=== PATIENT | male | born 2005 | race Caucasian/White ===

== ENCOUNTER 2023-02-04 22:50 | Observation (INO) | payer BC, SELFPAY ==
[2023-02-04 23:22] VITALS: BP 152/72; PULSE 113; RESP 16; TEMP 37.5; O2SAT 98; BMI 25.0
[2023-02-04 23:50] LABS: Add Manual Diff / Slide Review NO; Basophils Absolute Auto 0 /uL (0-100); Basophils Percent Auto 0.2 % (0-2); Eosinophils Absolute Auto 200 /uL (0-450); Eosinophils Percent Auto 2.4 % (2-4); Hematocrit 41.5 % (41-53); Hemoglobin 14.3 g/dL (13.5-17.5); Lymphocytes Absolute Auto 2300 /uL (1100-4500); Lymphocytes Percent Auto 25.1 % (25-40); Mean Corpuscular HGB Conc 34.4 % (30-36); Mean Corpuscular Hemoglobin 30.3 PG (26-34); Monocytes Absolute Auto 500 /uL (0-900); Monocytes Percent Auto 5.7 % (3-14); Neutrophils Absolute Auto 6200 /uL (1500-7000); Neutrophils Percent Auto 66.6 % (50-75); Platelet Count 188 X10^3/uL (150-400); Red Blood Cell Count 4.72 X10^6/uL (4.5-5.9); Red Cell Distribution Width 12.6 % (11.6-14.8); White Blood Cell Count 9.3 X10^3/uL (4.5-11.0)
[2023-02-04 23:57] LABS: Alanine Aminotransferase 19 IU/L (<50); Albumin 4.8 g/dL (3.5-5.0); Albumin Globulin Ratio 1.5 (1.0-2.8); Alkaline Phosphatase 57 U/L (38-126); Aspartate Aminotransferase 28 IU/L (17-59); BUN Creatinine Ratio 18.1 (6-22); Bilirubin Total 0.7 mg/dL (0.2-1.3); Blood Urea Nitrogen 13 mg/dL (9-20); Calcium 9.6 mg/dL (8.4-10.2); Carbon Dioxide 27 mmol/L (22-32); Chloride 103 mmol/L (98-107); Estimated Glomerular Filt Rate > 60 mL/min (>60); Globulin 3.3 g/dL (1.7-4.1); Glucose 103 mg/dL (70-100); HEMOLYSIS < 15 (0-50); Lipase 62 U/L (23-300); Potassium 3.8 mmol/L (3.4-5.1); Sodium 140 mmol/L (137-145); Total Protein 8.1 g/dL (6.3-8.2)
[2023-02-05] VITALS (21 sets, daily range): BP systolic 91–136; BP diastolic 49–78; PULSE 69–109; RESP 12–17; TEMP 36.4–36.9; O2SAT 97–99; BMI 25.0
--- NOTE | 2023-02-05 | PATH_ITS ---
[facility] Accession Number: [id number] No. of containers..01 Tissue . 01 Material submitted: . appendix - APPENDIX . 01 Diagnosis: Appendix, Appendectomy: Acute appendicitis with serositis. No evidence of neoplasm. MRV 02/08/2023 1316 Local . 01 Electronically signed: . Cipriano Marie MD, PhD, Pathologist NPI- [id number] . 01 Gross description: . The specimen is received in formalin labeled with the patient's name, , and appendix consists of a lord vermiform appendix measuring 5.3 cm in length by 0.7 cm in diameter with lord smooth serosa and grossly visible vasculature. The mesoappendix extends out to 3.0 cm. The margin is inked blue. Sectioning reveals the lumen to average 0.1 cm in diameter with no fecalith identified. The mendes average 0.4 cm thick with no perforation or lesion identified. Sales Coordinator sections to include the margin, one-half of the bisected distal tip, and cross sections are submitted in cassette A1. ([id number]) /MRV 02/06/2023 1323 Local . 01 Pathologist provided ICD-10: K35.80 . 01 CPT . 176099 Specimen Comment: A courtesy copy of this report has been sent to [phone] Performed at: 01 [facility] [address] [place] [address] [id number] MD Ed Hu MD Phone: [phone]
--- NOTE | 2023-02-05 01:14 | DI.CT.S_ITS ---
PROCEDURE: CT ABDOMEN PELVIS W CON INDICATIONS: poss appy TECHNIQUE: After the administration of IV contrast, axial sections were acquired from the lung bases to the pubic symphysis. Coronal and sagittal reformats were performed. For radiation dose reduction, the following was used: automated exposure control, adjustment of mA and/or kV according to patient size. COMPARISON: None. FINDINGS: Image quality: Excellent. Lung bases: There is a 0.3 cm subpleural nodule in the right middle lobe on series 3, image 2. Heart: Heart is normal in size. ABDOMEN: Liver: No mass lesion. Gallbladder: Within normal limits without calcified gallstones. Biliary ducts: No biliary ductal dilatation. Pancreas: Unremarkable. Spleen: Normal in size. Adrenal Glands: No adrenal nodules. Kidneys and Ureters: No hydronephrosis. Stomach and Bowel: Stomach, small bowel loops, and colon are normal in caliber and wall thickness. The appendix is at the upper limits of normal in caliber, measuring up to 0.7 cm. No periappendiceal fat stranding or fluid. There is colonic diverticulosis without acute diverticulitis. Peritoneum: No abnormal intraperitoneal fluid. No free air. Ventral Wall: No hernia. Abdominal Nodes: No retroperitoneal or mesenteric adenopathy by size criteria. Vessels: Aorta and inferior vena cava are normal in size. PELVIS: Pelvic Organs: Unremarkable. Bladder: Unremarkable. Pelvic Nodes: No enlarged lymph nodes. Miscellaneous: No inguinal hernias are seen. Bones: Visualized osseous structures demonstrate no suspicious focal lesions. IMPRESSION: 1. No definite evidence of acute appendicitis at this time. Appendix is at the upper limits of normal in diameter but no periappendiceal fat stranding or fluid are identified. Recommend continued clinical follow-up. Dictated by: Ed Meade M.D. on 02/05/2023 at 2:04 Approved by: Ed Meade M.D. on 02/05/2023 at 2:11
--- NOTE | 2023-02-05 04:29 | ED_ITS ---
HPI - General Adult General Chief complaint: Abdominal Pain Stated complaint: ABD pain ongoing t-1 Time Seen by Provider: 02/05/23 02:08 Source: patient Mode of arrival: Ambulatory History of Present Illness HPI narrative: Otherwise healthy 17-year-old young man who began noticing some some periumbilical tenderness after generous evening over the next couple of hours it localized to the right lower quadrant and became increasingly troublesome. He does not describe fevers, nausea or vomiting. He comes in for further evaluation. He notes that he had a normal bowel movement earlier today. He is no significant allergies. He has not had any prior surgeries. Related Data Allergies Allergy/AdvReac Type Severity Reaction Status Date / Time No Known Drug Allergies Allergy Verified 02/04/23 23:32 Review of Systems Review of Systems Narrative: Pertinent positive and negative findings as per HPI Patient History Medical History (Updated 02/05/23 @ 05:28 by Joanna Carter MD) Appendicitis Exam Initial Vital Signs Initial Vital Signs: Vital Signs Temperature 99.5 F 02/04/23 23:22 Pulse Rate 113 H 02/04/23 23:22 Respiratory Rate 16 02/04/23 23:22 Blood Pressure 152/72 H 02/04/23 23:22 Pulse Oximetry 98 02/04/23 23:22 Oxygen Delivery Method Room Air 02/04/23 23:22 General: Healthy appearing, in no acute distress. Able to give a complete and coherent history. Well-nourished well-developed HEENT: Moist mucous membranes, normal sclera with reactive pupils, Respiratory: Lungs are clear to auscultation, no wheezing no rales no rhonchi. Full and symmetrical air movement Cardiac: Regular rate and rhythm no murmurs no bruits Abdomen: Soft, significant right lower quadrant tenderness with with developing rebound but no guarding. No flank pain Skin: Warm and dry, no rashes Neurologic: Grossly neurologically intact with no obvious asymmetries or abnormalities Extremities: No trauma, well perfused Psych: Cooperative, appropriate insight and affect Course Orders Ordered: ED Orders 02/04/23 23:20 Complete Blood Count AUTO DIFF Stat Comprehensive Metabolic Panel Stat Lipase Stat 02/05/23 01:14 CT abdomen pelvis w con Stat Sodium Chloride (Normal Saline 0.9%) 1,000 mls @ 1,000 mls/hr IV BOLUS ONE Stop: 02/05/23 05:52 Last Admin: 02/05/23 04:55 Dose: 1,000 mls/hr Documented By: IAN Ondansetron HCl (Ondansetron 4 Mg Odt) 4 mg PO NOW PRN PRN Reason: Nausea And Vomiting Ondansetron HCl (Ondansetron 4 Mg/2 Ml Inj) 4 mg IV NOW PRN PRN Reason: Nausea And Vomiting Vital Signs Vital signs: Vital Signs - 8 hr 02/04/23 23:22 02/05/23 01:13 02/05/23 01:13 Temperature 99.5 F 98.4 F Pulse Rate 113 H 69 Respiratory Rate 16 Blood Pressure 152/72 H 128/58 L Pulse Oximetry 98 98 Oxygen Delivery Method Room Air Room Air 02/05/23 01:37 02/05/23 02:00 02/05/23 02:55 Temperature Pulse Rate 91 H 74 77 Respiratory Rate 16 16 Blood Pressure 117/60 Pulse Oximetry 97 97 98 Oxygen Delivery Method Room Air 02/05/23 02:55 02/05/23 02:55 02/05/23 03:00 Temperature Pulse Rate 71 Respiratory Rate Blood Pressure 117/60 111/61 Pulse Oximetry 98 Oxygen Delivery Method 02/05/23 03:00 02/05/23 03:30 02/05/23 03:30 Temperature Pulse Rate 70 75 Respiratory Rate 16 Blood Pressure 108/62 Pulse Oximetry 98 97 Oxygen Delivery Method 02/05/23 04:00 02/05/23 04:00 02/05/23 04:30 Temperature Pulse Rate 76 75 Respiratory Rate Blood Pressure 107/58 L Pulse Oximetry 98 98 Oxygen Delivery Method 02/05/23 04:31 02/05/23 04:31 02/05/23 04:35 Temperature Pulse Rate 89 82 Respiratory Rate Blood Pressure 91/51 L Pulse Oximetry 98 99 Oxygen Delivery Method 02/05/23 04:35 Temperature Pulse Rate Respiratory Rate Blood Pressure 111/57 L Pulse Oximetry Oxygen Delivery Method Medical Decision Making Lab Data 02/04/23 23:20 02/04/23 23:20 Labs: Lab Results 02/04/23 02/04/23 Range/Units 23:20 23:20 WBC 9.3 (4.5-11.0) X10^3/uL RBC 4.72 (4.5-5.9) X10^6/uL Hgb 14.3 (13.5-17.5) g/dL Hct 41.5 (41-53) % MCV 88.0 (80-100) fL MCH 30.3 (26-34) PG MCHC 34.4 (30-36) % RDW 12.6 (11.6-14.8) % Plt Count 188 (150-400) X10^3/uL Neut % (Auto) 66.6 (50-75) % Lymph % (Auto) 25.1 (25-40) % [place] % (Auto) 5.7 (3-14) % Eos % (Auto) 2.4 (2-4) % Baso % (Auto) 0.2 (0-2) % Neut # (Auto) 6200 (9483-2589) /uL Lymph # (Auto) 2300 (8723-4195) /uL [place] # (Auto) 500 (0-900) /uL Eos # (Auto) 200 (0-450) /uL Baso # (Auto) 0 (0-100) /uL Sodium 140 (137-145) mmol/L Potassium 3.8 (3.4-5.1) mmol/L Chloride 103 (98-107) mmol/L Carbon Dioxide 27 (22-32) mmol/L BUN 13 (9-20) mg/dL Creatinine 0.72 (0.66-1.25) mg/dL Estimated GFR > 60 (>60) mL/min BUN/Creatinine Ratio 18.1 (6-22) Glucose 103 H (70-100) mg/dL Calcium 9.6 (8.4-10.2) mg/dL Total Bilirubin 0.7 (0.2-1.3) mg/dL AST 28 (17-59) IU/L ALT 19 (<50) IU/L Alkaline Phosphatase 57 (38-126) U/L Total Protein 8.1 (6.3-8.2) g/dL Albumin 4.8 (3.5-5.0) g/dL Globulin 3.3 (1.7-4.1) g/dL Albumin/Globulin Ratio 1.5 (1.0-2.8) Lipase 62 (23-300) U/L Urine Dip Bedside Urine Glucose Negative Bedside Urine Bilirubin - Negative Bedside Urine Ketone - Negative Urine Specific [place] 1.005 Bedside Urine Occult Blood - Negative Bedside Urine pH 6.0 Bedside Urine Protein - Negative Bedside Urine Urobilinogen - Negative Bedside Urine Nitrite - Negative Bedside Urine Leukocytes - Negative Esterase Point of care testing: Urine Dip Bedside Urine Glucose Negative Bedside Urine Bilirubin - Negative Bedside Urine Ketone - Negative Urine Specific [place] 1.005 Bedside Urine Occult Blood - Negative Bedside Urine pH 6.0 Bedside Urine Protein - Negative Bedside Urine Urobilinogen - Negative Bedside Urine Nitrite - Negative Bedside Urine Leukocytes - Negative Esterase MDM Narrative Medical decision making narrative: CC: Right lower quadrant abdominal pain Data collected from: patient, Differential considered: Appendicitis, constipation, gastroenteritis Exam documented above, pertinent findings include: Moderate right lower quadrant tenderness with developing rebound Lab Test results independently reviewed as above. Pertinent findings: CBC is unremarkable with no significant leukocytosis Chemistries are reassuring Imaging studies independently reviewed: CT scan of the abdomen is reviewed and real-time with Radiology. Appendix is 0.7 cm which does not meet criteria for acute appendicitis however it is somewhat concerning. There is no significant s urrounding edema Consultations: Discussion with Dr. Burnett, general surgery. Given the fairly classic presentation the concerning physical exam and the suggestive CT, patient will be admitted with anticipation of probable appendectomy later today Treatments: Pain patient declined any pain medication. He was given IV fluids and Zosyn as an antibiotic Discussion: Findings reviewed with patient. We discussed the evolution of appendicitis in the fact that he does clinically appear to be evolving into acute appendicitis. Recommendation was thickening antibiotics, hospital admission with anticipation of surgical consultation and likely appendectomy. Questions are answered and transition orders are written for patient to be admitted to the floor to the general surgery service. Discharge Plan Departure Patient Disposition: Admitted as Observation Clinical Impression: Acute appendicitis Admit Date/Time: 02/05/23 04:48 Admit Provider: Rhett Burnett
[2023-02-05] MEDS: SODIUM CHLORIDE 0.9% 1,000 ML 1000 ML IV (04:55)
[2023-02-05] MEDS: SODIUM CHLORIDE 0.9% 1,000 ML 125 ML IV (05:51)
[2023-02-05] MEDS: PIPERACILLIN/TAZO 4.5 GM in SODIUM CHLORIDE 0.9% 100 ML IV (05:52)
--- NOTE | 2023-02-05 07:48 | PM.HP.1 ---
History of Present Illness History of Present Illness Date Patient Seen: 02/05/23 Time Patient Seen: 07:48 Chief complaint: ABD pain ongoing t-1 Narrative: Oswaldo is a 17-year-old man who came into the ER last night complaining 2 days of right lower quadrant pain. His CT scan was concerning for early acute appendicitis. His white blood cell count was normal. No prior abdominal surgery. [facility] Medical History (Updated 02/05/23 @ 05:28 by Joanna Carter MD) Appendicitis Social History Smoking Status: Never smoker Meds Home Medications and Allergies Home Medications Medication Instructions Recorded Confirmed Type No Known Home Medications 02/05/23 02/05/23 History Allergies Allergy/AdvReac Type Severity Reaction Status Date / Time No Known Drug Allergies Allergy Verified 02/04/23 23:32 Exam Vital Signs (past 8 hours): - 02/05/23 01:13 02/05/23 01:13 02/05/23 01:37 Temperature 98.4 F Pulse Rate 69 91 H Respiratory Rate 16 Blood Pressure 128/58 L Pulse Oximetry 98 97 Oxygen Delivery Method Room Air 02/05/23 02:00 02/05/23 02:55 02/05/23 02:55 Temperature Pulse Rate 74 77 Respiratory Rate 16 Blood Pressure 117/60 117/60 Pulse Oximetry 97 98 Oxygen Delivery Method Room Air 02/05/23 02:55 02/05/23 03:00 02/05/23 03:00 Temperature Pulse Rate 71 70 Respiratory Rate 16 Blood Pressure 111/61 Pulse Oximetry 98 98 Oxygen Delivery Method 02/05/23 03:30 02/05/23 03:30 02/05/23 04:00 Temperature Pulse Rate 75 Respiratory Rate Blood Pressure 108/62 107/58 L Pulse Oximetry 97 Oxygen Delivery Method 02/05/23 04:00 02/05/23 04:30 02/05/23 04:31 Temperature Pulse Rate 76 75 Respiratory Rate Blood Pressure 91/51 L Pulse Oximetry 98 98 Oxygen Delivery Method 02/05/23 04:31 02/05/23 04:35 02/05/23 04:35 Temperature Pulse Rate 89 82 Respiratory Rate Blood Pressure 111/57 L Pulse Oximetry 98 99 Oxygen Delivery Method 02/05/23 05:00 Temperature Pulse Rate 81 Respiratory Rate Blood Pressure Pulse Oximetry 97 Oxygen Delivery Method Oxygen Delivery Method Room Air Narrative Exam Narrative: Tender to palpation at McBurney's point Objective Labs 02/04/23 23:20 02/04/23 23:20 Labs: Laboratory Results - last 24 hr 02/04/23 02/04/23 23:20 23:20 WBC 9.3 RBC 4.72 Hgb 14.3 Hct 41.5 MCV 88.0 MCH 30.3 MCHC 34.4 RDW 12.6 Plt Count 188 Neut % (Auto) 66.6 Lymph % (Auto) 25.1 [place] % (Auto) 5.7 Eos % (Auto) 2.4 Baso % (Auto) 0.2 Neut # (Auto) 6200 Lymph # (Auto) 2300 [place] # (Auto) 500 Eos # (Auto) 200 Baso # (Auto) 0 Sodium 140 Potassium 3.8 Chloride 103 Carbon Dioxide 27 BUN 13 Creatinine 0.72 Estimated GFR > 60 BUN/Creatinine Ratio 18.1 Glucose 103 H Calcium 9.6 Total Bilirubin 0.7 AST 28 ALT 19 Alkaline Phosphatase 57 Total Protein 8.1 Albumin 4.8 Globulin 3.3 Albumin/Globulin Ratio 1.5 Lipase 62 Assessment & Plan Assessment and plan (1) Acute appendicitis: Qualifiers: Acute appendicitis type: with localized peritonitis Appendicitis abscess presence: without abscess Appendicitis gangrene presence: without gangrene Appendicitis perforation presence: without perforation Qualified Code(s): K35.30 - Acute appendicitis with localized peritonitis, without perforation or gangrene Status: Acute Plan We reviewed the risks and benefits of laparoscopic appendectomy versus IV antibiotic treatment. He would like to proceed with surgery.
--- NOTE | 2023-02-05 08:24 | SUR.OPER ---
Supine on padded OR bed, head on pillow, arms secured on padded arm boards at <90 degrees abduction, legs uncrossed, safety belt at thigh, tape over blanket over lower legs.
[2023-02-05] MEDS: BUPIVACAINE 0.5% (PF) 30 ML, EPINEPHrine 0.15 MG INJ (08:42)
--- NOTE | 2023-02-05 08:56 | PM.OP.1 ---
Operative Date/Time/Diagnoses Date of procedure: 02/05/23 Time of procedure: 08:57 Pre-op diagnosis: Acute appendicitis Post-op diagnosis: same Procedure & Clinicians Procedure: Laparoscopic appendectomy Same procedure as scheduled: Yes Surgeon: Rhett Burnett School Psychometrist: Kyle Cheek Anesthesia Type: General Operative Notes Procedure in detail: The patient was on IV antibiotics. The patient was brought to the operating room, placed on the table in the supine position and general endotracheal anesthesia was induced. A time-out was performed. The abdomen was prepped and draped in the usual fashion. After injection of 0.25% Marcaine a 1 cm infraumbilical incision was created with a 15 blade scalpel. The umbilical stalk was grasped with a Xavi clamp to elevate the abdominal wall. The infraumbilical midline fascia was cleared over 1 cm and the fascia was scored with cautery. The peritoneum was pierced with a Peon clamp. The Rima port was placed and the abdomen was insufflated to 15 mmHg. The camera was inserted and there was no evidence of any injury from the entry. Next, 5 mm ports were placed in the suprapubic and left lower quadrant positions under direct vision. The patient was placed in Trendelenburg with the right-side elevated. The terminal ileum was swept away from the cecum and the appendix was visualized. The mesoappendix was divided with the Power-seal to the base. Two PDS Endoloops were placed at the base and a 3rd endoloop was placed about a cm distally and the appendix was divided sharply. The specimen was placed in a Endo-Catch bag. The table was flattened and the terminal ileum and omentum were allowed to slide in over the appendiceal stump. Finally, the 5 mm ports were removed under direct vision. The pneumoperitoneum was released and the Rima port was removed followed by the Endo-Catch bag. Additional local was injected into the fascia and the infraumbilical incision was closed with 2 interrupted 2-0 Vicryl sutures. The skin incisions were closed with 4 Monocryl. Steri-Strips were applied followed by Band-Aids. EBL: 5 mL Specimen: Appendix Post-operative Condition: stable Disposition: PACU
--- NOTE | 2023-02-05 09:19 | PC.NURSE ---
Patient taken to preop this a.m. at approximately 0745. VSS, afebrile on RA. at bedside consenting patient. Pre op RN transports patient via bed. He was able to notify family of going to surgery earlier than expected.
--- NOTE | 2023-02-05 09:48 | PC.NURSE ---
Patient arrived from PACU at 0930 VSS, afebrile on RA. X3 incisions to abdomen covered with band aids C/D/I. He reports pain well controlled at about 2/10. +BS x4, and he tolerates advancing diet this morning. Continuous monitoring.
--- NOTE | 2023-02-05 11:42 | CM.DANOTE ---
Initial DCP Assessment Note: NURSE TECHNICIAN reviewed case, consulted in team rounds for pt's medical status and anticipated d/c needs. Met with pt and his mother at bedside, introduced self and role. Payer: Out of State [employer] IS: Lex Pt is a 17 year-old M who presented to the ED on 02/04 for worsening lower right abdominal pain over the last few days. CT imaging was concerning for acute appendicitis, and surgery was consulted. Surgery completed on 02/05 for laparoscopic appendectomy. Pt reports feeling very little pain, is alert and oriented, expresses feeling ready to go home once Dr. Burnett clears him for discharge. Mom had questions about home pain control, NURSE TECHNICIAN relayed her questions to the assigned RN. Mom will transport home, which will most likely be sometime today. No further d/c planning needs identified at this time. Discharge Planning/Care Management CM Discharge Assessment Start: 02/05/23 11:38 Freq: Status: Active Protocol: Document 02/05/23 11:38 DPL (Rec: 02/05/23 11:42 DPL [id number]) Discharge Planning Assessment Assigned Road Gang Supervisor DIONY Oates Advance Directives? No History Provided By Patient,Family Member,Medical Record Has Patient been admitted in last 30 No days? Prior Living Arrangements House Comment Pt resides in [place] with his father, he is here visiting his mother, and is residing w/ her. Household Members family Type of transporation used prior to Drives own vehicle admit Independent with ADL's Yes Is patient alert and oriented? Yes Comment N/A Caregiver for Another No Comment N/A Comment Pt/family deny any d/c needs, pt will be d/c'd later today back to family home. Barriers to Discharge No Discharge Plan Home Transportation Arrangement Mother Referrals Initiated None needed Whiteboard Updated in Patient Room with Yes name and ext. # of Road Gang Supervisor Review Status In Process Please Provide Date Initial DC 02/05/23 Assessment Was Performed
[2023-02-05] MEDS: HYDROCODONE/ACET 5/325 TABLET 2 TAB PO (14:03)
--- NOTE | 2023-02-05 15:35 | PC.NURSE ---
Patient tolerated lunch well and was able to ambulate with steady gait around the room. He has voided and reports pain is well controlled. MD Burnett notified as patient eager to discharge home today. He is cleared for discharge home with mother. He verbalizes understanding of site care, s/sx of infection, medications, activity limitations as well as follow up appointment in 2 weeks with MD Burnett's office. Shadow drainage to RUQ, no further drainage. He is escorted by RN with allo of his belongings to private vehicle with mother at 1430 pm this afternoon for discharge home.
== END 2023-02-05 14:30 | disposition home or self-care (01) ==
LOC: ED 02-05 02:08 → AC 02-05 04:48
PROVIDERS: Admitting Provider Surgery; Emergency Provider Emergency Medicine; Family Provider Pediatrics; PCP Pediatrics; Visit Provider Surgery
PROC: 0DTJ4ZZ Resection of Appendix, Percutaneous Endoscopic Approach (ICD-10-PCS; CPT 44970; principal; 2023-02-05 07:45)
DX: K35.80 Unspecified acute appendicitis (principal)
CPT/HCPCS: 44970; 36415; 74177; 80053; 81003; 83690; 85025; 99222; 99283; 99284; G0378; J0171; J0330; J1100; J1885; J2250; J2405; J2543; J2704; J3010; J3490; Q9967